=== PATIENT | female | born 1970 | race Caucasian/White ===

== ENCOUNTER 2019-08-13 09:02 | Outpatient (CLI) | payer OTHER, SELFPAY ==
--- NOTE | ~2019-08-13 | MM_ITS ---
EXAMINATION: MM screening [facility] BI w kristian HISTORY: Screening mammogram TECHNIQUE: Craniocaudal and mediolateral oblique 3-D tomosynthesis images were obtained and synthetic 2-D images were generated. CAD analysis was submitted and interpreted. COMPARISON: Comparison to multiple prior studies sequentially, with oldest reviewed study dated 09/2013. BREAST PARENCHYMAL COMPOSITION: There are scattered areas of fibroglandular density. FINDINGS: There is a developing asymmetry inferiorly in the right breast on MLO view with adjacent cl ustered calcifications. This is not well visualized on the cc view. No mammographic evidence for kayleigh gnancy in the left breast. IMPRESSION: 1. Developing right breast asymmetry. 2. Additional mammographic views and possible breast ultrasound are recommended. BI-RADS Category 0: Incomplete: Needs additional imaging evaluation. Reviewed, dictated and finalized at location A. IMPRESSION: 1. Developing right breast asymmetry. 2. Additional mammographic views and possible breast ultrasound are recommended . BI-RADS Category 0: Incomplete: Needs additional imaging evaluation.
== END 2019-08-13 09:03 | disposition home or self-care (01) ==
PROVIDERS: Visit Provider Obstetrics & Gynecology
DX: Z12.31 Encounter for screening mammogram for malignant neoplasm of breast (principal); R92.8 Other abnormal and inconclusive findings on diagnostic imaging of breast
CPT/HCPCS: 77063; 77067

== ENCOUNTER 2019-08-30 11:28 | Outpatient (CLI) | payer OTHER, SELFPAY ==
--- NOTE | ~2019-08-30 | MMUS_ITS ---
EXAMINATION: MM diagnostic mammo unilat RT, US breast RT limited HISTORY: Follow-up right breast asymmetry TECHNIQUE: Additional 3-D tomosynthesis images of right were performed and synthetic 2-D images were generated. CAD analysis was submitted and interpreted. High resolution right breast ultrasound was pe rformed. COMPARISON: 08/13/2019 FINDINGS: MAMMOGRAPHIC FINDINGS: Breast composed of scattered areas of fibroglandular density. There are no discrete masses or abnorma l calcifications. There is focal asymmetry central medial aspect of the right breast, middle third. ULTRASOUND: Limited right breast ultrasound: In the subareolar location of the right breast there is a 3 mm cyst. At 9:00, 4 cm from the nipple, t here is an irregular shaped hypoechoic mass measuring 3 x 2 x 2 mm with antiparallel configuration. N o internal vascularity. There is posterior shadowing. IMPRESSION: 1. Irregular shaped hypoechoic mass of the right breast at 9:00, 4 cm from the nipple. 2. Ultrasound-guided right breast biopsy recommended. BI-RADS category 4, suspicious findings. Reviewed, dictated and finalized at location A. IMPRESSION: 1. Irregular shaped hypoechoic mass of the right breast at 9:00, 4 cm from the nipple. 2. Ultrasound-guided right breast biopsy recommended. BI-RADS category 4, suspicious findings.
== END 2019-08-30 11:29 | disposition home or self-care (01) ==
PROVIDERS: Visit Provider Obstetrics & Gynecology
DX: R92.8 Other abnormal and inconclusive findings on diagnostic imaging of breast (principal)
CPT/HCPCS: 76642; 77065

== ENCOUNTER 2019-09-06 10:04 | Outpatient (CLI) | payer OTHER, SELFPAY ==
--- NOTE | ~2019-09-06 | MMUS_ITS ---
EXAMINATION: US breast biopsy RT w image, MM post biopsy invasive RT DATE: 09/06/2019 11:49 (accession [id number]), 09/06/2019 12:20 (accession [id number]) INDICATION: Indeterminate right breast mass. Ultrasound-guided core biopsy is requested to evaluate for malignancy. TECHNIQUE AND FINDINGS: The risks and potential benefits of the procedure were discussed with the patient including bleeding and infection. A time out was performed. The skin of the right breast was prepared and draped in usua l sterile fashion. 1% lidocaine was used for superficial anesthesia. 1% lidocaine with epinephrine wa s used for deep anesthesia. An initial attempt at aspiration using an 18-gauge needle was unsuccessfu l. A vacuum-assisted biopsy gun needle was then advanced to the outer edge of the region of interest fro m a lateral approach utilizing sonographic guidance. A total of one tissue core sample was obtained t hrough the lesion. The lesion was no longer visible after for sampling. A tissue marker clip was then placed at the biopsy site. Hemostasis was achieved. A sterile bandage was applied. The patient tolerated procedure well and there was no evidence of immediate complication. The patient was given verbal instructions to return to the Emergency Department in the event of severe breast pa in or rapid breast enlargement. A two view right breast mammogram was obtained to document tissue mar ker clip placement. IMPRESSION: 1. Successful ultrasound-guided vacuum-assisted biopsy of right breast mass with tissue marker placem ent. Reviewed, dictated and finalized at location A. IMPRESSION: 1. Successful ultrasound-guided vacuum-assisted biopsy of right breast mass wit h tissue marker placement.
== END 2019-09-06 10:05 | disposition home or self-care (01) ==
PROVIDERS: PCP Physician Assistant; Visit Provider Obstetrics & Gynecology
DX: N63.10 Unspecified lump in the right breast, unspecified quadrant (principal)
CPT/HCPCS: 19083; 88305

== ENCOUNTER → 2020-05-04 16:04 | Outpatient (REF) | payer OTHER, SELFPAY | LOC: ANHLAB 16:04 | PROVIDERS: PCP Physician Assistant; Visit Provider Nurse Practitioner | DX: C44.311 Basal cell carcinoma of skin of nose (principal) | CPT/HCPCS: 88305 ==

== ENCOUNTER → 2020-06-26 10:13 | Outpatient (REF) | payer OTHER, SELFPAY | LOC: ANHLAB 10:13 | PROVIDERS: PCP Physician Assistant; Visit Provider Nurse Practitioner | DX: C44.311 Basal cell carcinoma of skin of nose (principal) | CPT/HCPCS: 88305; 88331 ==

== ENCOUNTER 2020-08-18 08:48 | Outpatient (CLI) | payer OTHER, SELFPAY ==
--- NOTE | ~2020-08-18 | MM_ITS ---
EXAMINATION: MM screening [facility] BI w kristian HISTORY: Screening mammogram TECHNIQUE: Craniocaudal and mediolateral oblique 3-D tomosynthesis images were obtained and synthetic 2-D images were generated. CAD analysis was submitted and interpreted. COMPARISON: 08/30/2019, 08/13/2019, 08/03/2018, 08/06/2017 BREAST PARENCHYMAL COMPOSITION: There are scattered areas of fibroglandular density. FINDINGS: There is no evidence of suspicious mass, calcification, or architectural distortion to sugg est malignancy in either breast. There has been no suspicious interval change. IMPRESSION: 1. No mammographic evidence of malignancy. 2. Recommend routine screening mammography in one year. BI-RADS Category 1: Negative Reviewed, dictated and finalized at location A.
== END 2020-08-18 08:49 | disposition home or self-care (01) ==
LOC: ANHIMG 08:51
PROVIDERS: PCP Physician Assistant; Visit Provider Obstetrics & Gynecology
DX: Z12.31 Encounter for screening mammogram for malignant neoplasm of breast (principal)
CPT/HCPCS: 77063; 77067

== ENCOUNTER 2021-03-10 10:11 | Emergency (ER) | payer OTHER, SELFPAY ==
[2021-03-10 10:20] VITALS: BP 123/83; PULSE 101; RESP 16; TEMP 36.9; O2SAT 100
[2021-03-10 10:21] VITALS: BP 123/83; PULSE 101; RESP 16; TEMP 36.9; O2SAT 100
--- NOTE | 2021-03-10 10:32 | ED.SKABFB ---
HPI - Skin/Abscess/Foreign Bdy General Chief complaint: Skin/Abscess/Foreign Body Stated complaint: Insect Bite Time Seen by Provider: 03/10/21 10:33 Source: patient and RN notes reviewed Mode of arrival: ambulatory Limitations: no limitations History of Present Illness HPI narrative: Brenda 1-year-old female patient who ambulated into the [facility]. Patient states she has a bite on the left upper leg posterior side. Patient states she has been taking ibuprofen at home. Patient states she noticed the bite on 03/08/2021. Patient states has been increasing in size. Patient is unsure what bit her. Patient states pain is a 7 out of 10 with movement. MD complaint: insect bite/sting Related Data Home Medications Medication Instructions Recorded Confirmed escitalopram oxalate [Lexapro] 10 mg PO DAILY 03/10/21 03/10/21 Allergies Allergy/AdvReac Type Severity Reaction Status Date / Time peanut Allergy Unknown TONGUE Verified 03/10/21 10:17 ITCHING Sulfa (Sulfonamide Allergy Unknown Unknown Verified 03/10/21 10:17 Antibiotics) Review of Systems Review of Systems: CONSTITUTIONAL: Denies body aches, fever, chills, or sweats. EYES: Denies visual changes, redness, or discharge. ENT: Denies rhinorrhea, congestion, sore throat, or otalgia. CARDIOVASCULAR: Denies chest pain, palpitations, or edema. RESPIRATORY: Denies cough or dyspnea. GASTROINTESTINAL: Denies abdominal pain, nausea, vomiting, or diarrhea. GENITOURINARY: Denies dysuria or hematuria. SKIN: Denies rash, itching, or + left buttock bite . MUSCULOSKELETAL: Denies back pain, joint pain, or myalgia. NEUROLOGIC: Denies headache, numbness, tingling, or weakness. PSYCH: Denies depression or anxiety. [facility] Family History Family History Mother Family history of malignant neoplasm Social History Social History Smoking status: Never smoker Alcohol intake: never Comments At time of signature, I have reviewed and agree with nursing past medical, surgical, social and family history unless otherwise noted. Please see nursing chart for further information. There is no relevant family history pertinent to the presenting complaint Exam Narrative: GENERAL: Well-appearing, well-nourished, and in no acute distress. HEAD: Normocephalic, atraumatic. EYES: EOMI. No redness or drainage. Conjunctivae normal. ENT: Mucous membranes pink and moist. Nares clear. No rhinorrhea. NECK: Normal AROM. Supple. CHEST: No respiratory distress. MUSCULOSKELETAL: No bony tenderness. EXTREMITIES: Normal range of motion. No edema. SKIN: Warm, dry, no rash. Capillary refill normal. Normal skin turgor; 12cm erythematous area with .5cm blackened middle, area is warm to touch, non fluctuant, NEURO: No focal deficits. Alert and oriented x3. Gait steady. PSYCH: Normal affect. No signs of depression or anxiety. Course Vital Signs Vital signs: Vital Signs Temperature 36.9 C 03/10/21 10:20 Pulse Rate 101 H 03/10/21 10:20 Respiratory Rate 16 03/10/21 10:20 Blood Pressure 123/83 03/10/21 10:20 Pulse Oximetry 100 03/10/21 10:20 Temperature 36.9 C 03/10/21 10:21 Pulse Rate 101 H 03/10/21 10:21 Respiratory Rate 16 03/10/21 10:21 Blood Pressure 123/83 03/10/21 10:21 Pulse Oximetry 100 03/10/21 10:21 Reviewed MDM - Skin/Abscess/Foreign Bdy MDM Narrative Medical decision making narrative: Patient states she was bit by an insect unsure of what kind. There is a 0.5 cm blackened area surrounded by 12 cm centimeter area of erythema. Area is warm to touch. Nonfluctuant. Differential Diagnosis Differential diagnosis: Likely abscess of skin or subcutaneous tissue, cellulitis and insect bites Medical Records Attestation: I reviewed the patient's medical records. Critical Care Time Critical Care Time Critical Care Time: No Di
== END 2021-03-10 10:46 | disposition home or self-care (01) ==
PROVIDERS: Emergency Provider Nurse Practitioner Family
DX: L03.115 Cellulitis of right lower limb (principal); S70.361A Insect bite (nonvenomous), right thigh, initial encounter; W57.XXXA Bitten or stung by nonvenomous insect and other nonvenomous arthropods, initial encounter; D64.9 Anemia, unspecified
CPT/HCPCS: 99213; G0463

== ENCOUNTER 2021-03-30 12:21 | Outpatient (CLI) | payer OTHER, SELFPAY ==
--- NOTE | ~2021-03-30 | US_ITS ---
EXAMINATION: US soft tissue UE RT DATE: 03/30/2021 12:58 INDICATION: Right upper limb lump. TECHNIQUE: Multiple grayscale and Doppler ultrasound images of the right upper limb were obtained. COMPARISON: None FINDINGS: There is no abnormal mass in the patient's area of concern in the right shoulder region. IMPRESSION: 1. No abnormal mass in the patient's area of concern in the right shoulder region. Reviewed, dictated and finalized at location A. & PRESIDENT IMPRESSION: 1. No abnormal mass in the patient's area of concern in the right shoulder carlos on.
== END 2021-03-30 12:22 | disposition home or self-care (01) ==
PROVIDERS: Visit Provider Nurse Practitioner
DX: R22.31 Localized swelling, mass and lump, right upper limb (principal)
CPT/HCPCS: 76882

== ENCOUNTER 2021-09-17 10:12 | Outpatient (CLI) | payer OTHER, SELFPAY ==
--- NOTE | ~2021-09-17 | MM_ITS ---
EXAMINATION: MM screening [facility] BI w kristian HISTORY: Screening mammogram TECHNIQUE: Craniocaudal and mediolateral oblique 3-D tomosynthesis images were obtained and synthetic 2-D images were generated. CAD analysis was submitted and interpreted. COMPARISON: 08/18/2020 bilateral screening mammogram 09/06/2019 right ultrasound-guided breast biopsy 08/2019 diagnostic right mammogram and limited right breast ultrasound , 08/03/2018 bilateral screening mammogram examinations BREAST PARENCHYMAL COMPOSITION: There are scattered areas of fibroglandular density. FINDINGS: There is a biopsy marker in the outer mid to upper right breast similar history of prior be nign right breast biopsy. Occasional benign calcifications. There is no evidence of suspicious mass, calcification, or architec tural distortion to suggest malignancy in either breast. There has been no suspicious interval change . IMPRESSION: 1. No mammographic evidence of malignancy. 2. Recommend routine screening mammography in one year. BI-RADS Category 2: Benign finding(s). Reviewed, dictated and finalized at location A.
== END 2021-09-17 10:13 | disposition home or self-care (01) ==
LOC: ANHIMG 10:14
PROVIDERS: PCP Nurse Practitioner; Visit Provider Obstetrics & Gynecology
DX: Z12.31 Encounter for screening mammogram for malignant neoplasm of breast (principal)
CPT/HCPCS: 77063; 77067

== ENCOUNTER 2022-11-19 16:03 | Outpatient (CLI) | payer OTHER, SELFPAY ==
--- NOTE | ~2022-11-19 | MM_ITS ---
EXAMINATION: MM screening [facility] BI w kristian HISTORY: Screening mammogram TECHNIQUE: Craniocaudal and mediolateral oblique 3-D tomosynthesis images were obtained and synthetic 2-D images were generated. CAD analysis was submitted and interpreted. COMPARISON: 09/17/2021, 08/18/2020, 08/30/2019, 08/13/2019 BREAST PARENCHYMAL COMPOSITION: There are scattered areas of fibroglandular density. FINDINGS: No suspicious mass, calcification, or architectural distortion are identified in either river ast to suggest malignancy. There has been no suspicious interval change. IMPRESSION: 1. No mammographic evidence of malignancy. 2. Recommend routine screening mammography in one year. BI-RADS Category 1: Negative Reviewed, dictated and finalized at location A.
== END 2022-11-19 16:04 | disposition home or self-care (01) ==
PROVIDERS: PCP Nurse Practitioner; Visit Provider Obstetrics & Gynecology
DX: Z12.31 Encounter for screening mammogram for malignant neoplasm of breast (principal)
CPT/HCPCS: 77063; 77067

== ENCOUNTER 2023-04-10 06:46 | Outpatient (CLI) | payer OTHER, SELFPAY ==
[2023-04-10 08:15] LABS: Basophils Percent Auto 0.5 % (0.2-1.2); Eosinophils Absolute Auto 0.2 K/mm3 (0-0.3); Eosinophils Percent Auto 3.8 % (0-4.4); Hemoglobin 13.3 g/dL (12.0-15.0); Immature Granulocyte Absolute 0.01 K/mm3 (0.00-0.031); Immature Granulocyte Percent A 0.2 % (0-0.5); Lymphocytes Percent Auto 48.5 % (18.3-44.2); Mean Corpuscular HGB Conc 32.4 g/dl (32-36); Mean Corpuscular Hemoglobin 28.8 pg (26-34); Mean Corpuscular Volume 88.7 fl (80-100); Mean Platelet Volume 9.7 fl (7.4-10.4); Monocytes Absolute Auto 0.3 K/mm3 (0.1-0.6); Monocytes Percent Auto 6.1 % (2.6-8.5); Neutrophils Absolute Auto 2.3 K/mm3 (1.3-6.7); Neutrophils Percent Auto 40.9 % (45.5-73.1); Platelet Count Result 425 k/mm3 (150-375); Red Blood Count 4.62 M/mm3 (4.2-5.4); Red Cell Distribution Width 12.2 % (11.5-14.5); White Blood Count 5.6 K/mm3 (4.5-10.0)
== END 2023-04-10 06:47 | disposition home or self-care (01) ==
LOC: ANHLAB 06:49
PROVIDERS: PCP Nurse Practitioner; Visit Provider Nurse Practitioner
DX: D75.839 Thrombocytosis, unspecified (principal)
CPT/HCPCS: 36415; 85025

== ENCOUNTER 2023-05-07 15:18 | Outpatient (CLI) | payer OTHER, SELFPAY ==
[2023-05-07 15:34] LABS: Basophils Percent Auto 0.6 % (0.2-1.2); Eosinophils Absolute Auto 0.2 K/mm3 (0-0.3); Eosinophils Percent Auto 2.6 % (0-4.4); Hematocrit 40.3 % (37.0-47.0); Hemoglobin 13.7 g/dL (12.0-15.0); Immature Granulocyte Absolute 0.01 K/mm3 (0.00-0.031); Immature Granulocyte Percent A 0.1 % (0-0.5); Lymphocytes Absolute Auto 3.41 K/mm3 (0.9-3.2); Lymphocytes Percent Auto 49.2 % (18.3-44.2); Mean Corpuscular Hemoglobin 28.9 pg (26-34); Mean Platelet Volume 8.9 fl (7.4-10.4); Monocytes Absolute Auto 0.5 K/mm3 (0.1-0.6); Monocytes Percent Auto 6.9 % (2.6-8.5); Neutrophils Absolute Auto 2.8 K/mm3 (1.3-6.7); Neutrophils Percent Auto 40.6 % (45.5-73.1); Platelet Count Result 400 k/mm3 (150-375); Red Blood Count 4.74 M/mm3 (4.2-5.4); Red Cell Distribution Width 11.9 % (11.5-14.5); White Blood Count 6.9 K/mm3 (4.5-10.0)
[2023-05-07 16:34] LABS: Iron 64 ug/dL (37-170)
[2023-05-07 16:41] LABS: Alanine Aminotransferase 79 U/L (6-35); Albumin Level 4.4 g/dL (3.5-5.1); Alkaline Phosphatase 103 U/L (38-126); Anion Gap 8 mmol/L (8-16); Aspartate Amino Transferase 60 U/L (14-36); Bilirubin,Total 0.4 mg/dL (0.2-1.3); Blood Urea Nitrogen 13 mg/dL (7-17); CRP < 0.5 mg/dL (<1.0); Calcium 9.5 mg/dL (8.4-10.2); Carbon Dioxide 30 mmol/L (22-30); Chloride 101 mmol/L (98-107); Estimated Glomerular Filt Rate > 60; Glucose 96 mg/dL (65-110); Potassium 3.8 mmol/L (3.4-5.0); Sodium 139 mmol/L (137-145)
[2023-05-07 16:44] LABS: Percent Iron Saturation 19 % (20-50)
[2023-05-07 16:47] LABS: Erythrocyte Sedimentation Rate 12 mm/hr (0-20)
[2023-05-13 12:50] LABS: CALR Exon 9 Mutation Not Detected (Not Detected); CSF3R Exon 14/17 Mutation Not Detected (Not Detected); JAK2 Exon 12 Mutation Not Detected (Not Detected); JAK2 V617F Mutation Not Detected (Not Detected); MPL Exon 10 Mutation Not Detected (Not Detected); Specimen Source Blood
== END 2023-05-07 15:19 | disposition home or self-care (01) ==
LOC: ANHLAB 15:20
PROVIDERS: Nurse Practitioner Family; PCP Nurse Practitioner; Visit Provider Internal Medicine Hematology & Oncology
DX: D75.838 Other thrombocytosis (principal); D50.9 Iron deficiency anemia, unspecified; D75.1 Secondary polycythemia
CPT/HCPCS: 36415; 80053; 81219; 81270; 81279; 81339; 81479; 82728; 83540; 83550; 85025; 85652; 86140

== ENCOUNTER 2023-06-06 08:47 | Emergency (ER) | payer OTHER, SELFPAY ==
--- NOTE | ~2023-06-06 | CT_ITS ---
EXAMINATION: CTA BRAIN/CAROTID DATE: 06/06/2023 09:19 INDICATION: Stroke with left-sided numbness and tingling of the face, neck and arm TECHNIQUE: Computed tomographic angiography (CTA) of the head and neck was performed with 100 mL Omni paque-350 intravenous contrast. Multiplanar reconstructions and maximum intensity projection 3D-recon structions of the carotid arteries and of the intracranial arteries were created by the technologist on a separate workstation. Precontrast CT of the head was also obtained. Automated exposure control and iterative reconstruction technique were employed.The dose-length product was 1614.84 mGy-cm. COMPARISON: None. FINDINGS: Carotid arteries: There is no evident or sclerotic plaque with 0% stenosis of the right and left carotid bulbs relative to normal distal artery lumen diameter (NASCET criteria). Bilateral vertebral arteries are codominan t with no evident stenosis. The visualized upper lungs are clear. 1 cm peripherally enhancing right t hyroid nodule. Cervical soft tissues are otherwise unremarkable. Mild cervical spondylosis. Head: No acute intracranial hemorrhage, acute infarction or abnormal extra axial fluid collection. Ventricl es are normal and symmetric. No mass/mass effect. The orbits, paranasal sinuses and mastoid air cells are normal. Intracranial arteries There is no hemodynamically significant stenosis in the vertebral, basilar and internal carotid arter ies. Vertebral arteries are codominant. There are no aneurysms identified. Both A1 and P1 segments a re patent. There is also a patent anterior communicating artery. Cerebral arterial arborization appea rs symmetric. IMPRESSION: 1. No evident atherosclerotic plaque with 0% stenosis of the right and left carotid bulbs relative to normal distal artery lumen diameter (NASCET criteria). 2. Normal head CT and brain CT angiogram. Reviewed, dictated and finalized at location A. LE MAKER IMPRESSION: 1. No evident atherosclerotic plaque with 0% stenosis of the right and left car otid bulbs relative to normal distal artery lumen diameter (NASCET criteria). 2. Normal head CT and brain CT angiogram.
--- NOTE | ~2023-06-06 | CT_ITS ---
CT scan of the cervical spine Technique: Following intravenous administration of 100 cc of Omnipaque 350 contrast material, multipl e contiguous axial [address] images of the cervical spine were obtained and reconstructed in 2D s agittal and coronal planes on the acquisition scanner. Dose reduction technique was used on this scan by utilizing automated exposure control, adjustment of the mA and/or kV according to patient size. T he dose-length product (DLP) was 1614.84 mGy-cm. Clinical History: Pain Findings: No fractures or dislocations. Unremarkable visualized bony structures. The intervertebral disc spaces are preserved. No prevertebral soft tissue swelling. Impression: No fracture or subluxation of the cervical spine. Reviewed, dictated and finalized at location . H SHRINKER Impression: No fracture or subluxation of the cervical spine.
--- NOTE | ~2023-06-06 | XR_ITS ---
EXAMINATION: XR chest 1V portable INDICATION: Left arm numbness TECHNIQUE: Portable AP chest at 0950 hours COMPARISON: 03/26/2023 FINDINGS: The lungs are free of acute opacities. No pleural effusion or pneumothorax. The cardiomedia stinal silhouette is normal. IMPRESSION: 1. No acute cardiopulmonary abnormality. Reviewed, dictated and finalized at location B. SETTER
[2023-06-06 08:58] VITALS: BP 126/77; PULSE 88; RESP 18; TEMP 36.4; O2SAT 100
--- NOTE | 2023-06-06 08:58 | ECG_ITS ---
Measurements Intervals [place] Rate: 84 P: 58 ME: 158 QRS: 50 QRSD: 88 T: 46 QT: 376 QTc: 445 Interpretive Statements SINUS RHYTHM LOW QRS VOLTAGE IN PRECORDIAL LEADS [QRS DEFLECTION < 1.0 mV IN CHEST LEADS] OTHERWISE NORMAL ECG NO PREVIOUS ECG AVAILABLE FOR COMPARISON Electronically Signed On 06-06-2023 15:34:18 [employer] CHIEF CLERK by Bishnu Coronado M.D.
[2023-06-06 09:02] LABS: Glucose Point of Care 98 mg/dl (65-105)
--- NOTE | 2023-06-06 09:10 | ED.GENADULT ---
HPI - General Adult General Chief complaint: Neuro Symptoms/Deficit Stated complaint: N/T arm and face left side Time Seen by Provider: 06/06/23 09:09 History of Present Illness HPI narrative: Patient is a 53-year-old female who presents to the emergency department this morning due to concern for stroke. Patient states that she has been having some neck and left shoulder pain for a while but shortly prior to arrival she noticed that she was having some numbness and tingling to her left upper extremity which was extending up to her left shoulder and left neck. Patient admits that she feels mild to her left face as well. She denies any weakness, any difficulties with her speech expression and denies any additional symptoms. Patient is able to ambulate without any difficulty. She denies any history of strokes or TIAs and denies any current blood thinner use. Patient only takes a baby aspirin due to history of thrombocytosis. Patient denies any additional symptoms include chest pain, shortness of breath, nausea, vomiting, abdominal pain, dysuria, hematuria, constipation, diarrhea, melena, hematochezia, fevers or chills. Patient also denies any headaches, dizziness, lightheadedness, blurry visions or focal weakness. There are no other modifying, alleviating, or precipitating factors at this time. Related Data Home Medications Medication Instructions Recorded Confirmed escitalopram oxalate 10 mg tablet 10 mg PO DAILY 03/10/21 03/10/21 (Lexapro) Allergies Allergy/AdvReac Type Severity Reaction Status Date / Time peanut Allergy Unknown TONGUE Verified 09/17/21 13:43 ITCHING Sulfa (Sulfonamide Allergy Unknown Unknown Verified 09/17/21 13:43 Antibiotics) Review of Systems Review of Systems: All systems are reviewed and are negative unless stated otherwise in the HPI. [facility] Family History Family History Mother Family history of malignant neoplasm Social History Social History Smoking status: Never smoker Alcohol intake: never Comments No significant past medical history, surgical history or family history. Patient denies any history of strokes or TIAs, is currently on a baby aspirin due to thrombocytosis. Exam Narrative: General: Alert, awake, afebrile, in no acute distress. HEENT: PERRL, no rhinorrhea, no post nasal drip, oropharynx clear. Neck: Trachea midline, no JVD, no lymphadenopathy, no midline tenderness to palpation over the cervical spine. Cardiovascular: Regular rate and rhythm, no murmurs, rubs or gallops, no peripheral edema. Respiratory: Clear to auscultation bilaterally, no tachypnea, no wheezing, no rhonchi, no rubs, no respiratory distress. Abdomen: Soft, nontender, nondistended, no rebound, no guarding, no peritoneal signs. Musculoskeletal: No joint swelling or deformity, normal muscle tone. Skin: No rashes or petechia, no signs of infection. Psychiatric: Alert and oriented, normal behavior and judgment for situation. Neurological: Alert and oriented to person, place, and time. Follows all commands. 5/5 motor strength in the bilateral upper and lower extremity, sensation intact in the bilateral upper and lower extremity, patient reports paresthesias to the left upper extremity extending to her left neck, no facial asymmetry, gait is normal, speech is clear and fluent. GCS 15, NIH 1. Course Vital Signs Vital signs: Vital Signs Temperature 97.5 F L 06/06/23 08:58 Pulse Rate 88 06/06/23 08:58 Respiratory Rate 18 06/06/23 08:58 Blood Pressure 126/77 06/06/23 08:58 Pulse Oximetry 100 06/06/23 08:58 Oxygen Delivery Room Air 06/06/23 08:58 Temperature 98.3 F 06/06/23 09:17 Pulse Rate 93 06/06/23 09:17 Respiratory Rate 16 06/06/23 09:17 Blood Pressure 137/82 06/06/23 09:17 Pulse Oximetry 100 06/06/23 09:17 Oxygen Delivery Room Air
[2023-06-06 09:17] VITALS: BP 137/82; PULSE 93; RESP 16; TEMP 36.8; O2SAT 100
[2023-06-06 09:33] LABS: Basophils Percent Auto 0.6 % (0.2-1.2); Eosinophils Absolute Auto 0.2 K/mm3 (0-0.3); Eosinophils Percent Auto 2.4 % (0-4.4); Hematocrit 42.8 % (37.0-47.0); Immature Granulocyte Absolute 0.01 K/mm3 (0.00-0.031); Immature Granulocyte Percent A 0.2 % (0-0.5); Lymphocytes Absolute Auto 2.73 K/mm3 (0.9-3.2); Lymphocytes Percent Auto 43.6 % (18.3-44.2); Mean Corpuscular HGB Conc 32.7 g/dl (32-36); Mean Corpuscular Hemoglobin 27.9 pg (26-34); Mean Corpuscular Volume 85.4 fl (80-100); Mean Platelet Volume 9.5 fl (7.4-10.4); Monocytes Absolute Auto 0.4 K/mm3 (0.1-0.6); Monocytes Percent Auto 6.4 % (2.6-8.5); Neutrophils Absolute Auto 2.9 K/mm3 (1.3-6.7); Neutrophils Percent Auto 46.8 % (45.5-73.1); Platelet Count Result 438 k/mm3 (150-375); Red Blood Count 5.01 M/mm3 (4.2-5.4); Red Cell Distribution Width 12.4 % (11.5-14.5); White Blood Count 6.3 K/mm3 (4.5-10.0)
[2023-06-06 09:43] LABS: INR 0.9; Prothrombin Time 12.4 Seconds (11.1-14.7)
[2023-06-06 09:44] LABS: Partial Thromboplastin Time 28.4 SECONDS (22.3-36.8)
[2023-06-06 09:53] LABS: Alanine Aminotransferase 40 U/L (6-35); Albumin Level 4.3 g/dL (3.5-5.1); Alkaline Phosphatase 98 U/L (38-126); Anion Gap 7 mmol/L (8-16); Aspartate Amino Transferase 37 U/L (14-36); Bilirubin,Total 0.8 mg/dL (0.2-1.3); Blood Urea Nitrogen 11 mg/dL (7-17); Calcium 9.5 mg/dL (8.4-10.2); Carbon Dioxide 28 mmol/L (22-30); Chloride 105 mmol/L (98-107); Estimated CRCL calculation 73 ml/min; Estimated Glomerular Filt Rate > 60; Glucose 99 mg/dL (65-110); Potassium 3.9 mmol/L (3.4-5.0); Sodium 140 mmol/L (137-145)
[2023-06-06 09:56] LABS: Troponin I < 0.012 ng/mL (0.000-0.034)
[2023-06-06 12:55] VITALS: BP 137/98; PULSE 88; RESP 16; O2SAT 100
== END 2023-06-06 12:56 | disposition home or self-care (01) ==
LOC: ANHED 09:43
PROVIDERS: Emergency Provider Emergency Medicine; PCP Nurse Practitioner
DX: M54.12 Radiculopathy, cervical region (principal); Z79.82 Long term (current) use of aspirin; D75.839 Thrombocytosis, unspecified
CPT/HCPCS: 36415; 70496; 70498; 71045; 72125; 80053; 82948; 84484; 85025; 85610; 85730; 93005; 99284; Q9967

== ENCOUNTER 2023-08-19 09:35 | Outpatient (CLI) | payer OTHER, SELFPAY ==
--- NOTE | ~2023-08-19 | US_ITS ---
EXAMINATION: US thyroid DATE: 08/19/2023 10:50 INDICATION: Right thyroid nodule TECHNIQUE: Multiple ultrasound images of the thyroid were obtained. COMPARISON: None. FINDINGS: The right thyroid lobe measures 4.6 x 1.7 x 1.4 cm. The left thyroid lobe measures 4.5 x 1.0 x 1.5 c m. There is a wider than tall 1.5 cm solid hypoechoic nodule with smooth margins and without echogen ic foci in the mid inferior right thyroid lobe. (TI-RADS 4, moderately suspicious , FNA if >=1.5 cm, annual followup is >=1 cm). There is normal echotexture, echogenicity and vascular flow throughout th e thyroid gland. Cephalad to the left thyroid lobe is thickening of the left ala of the thyroid carti jacque with a central fusiform 11 x 7 x 4 mm anechoic region within the cartilage which can be seen on the earlier carotid and cervical spine CT studies from 06/06/2023 is a fusiform region of central decre ased attenuation relative to the higher attenuation/enhancing inner and outer perichondrial. IMPRESSION: 1. 1.5 cm TI RADS 4 right thyroid nodule for which ultrasound-guided biopsy would be recommended. 2. 11 x 7 x 4 mm anechoic lesion within the left ala of the thyroid cartilage. Differential would inc lude purulent chondritis, hematoma related to trauma or potentially chondral neoplasm either benign o r malignant. Recommend ENT consultation. Reviewed, dictated and finalized at location A. IMPRESSION: 1. 1.5 cm TI RADS 4 right thyroid nodule for which ultrasound-guided biopsy wou ld be recommended. 2. 11 x 7 x 4 mm anechoic lesion within the left ala of the thyroid cartilage. Differential would include purulent chondritis, hematoma related to trauma or p otentially chondral neoplasm either benign or malignant. Recommend ENT consulta tion.
== END 2023-08-19 09:36 | disposition home or self-care (01) ==
LOC: ANHIMG 09:37
PROVIDERS: PCP Nurse Practitioner; Visit Provider Nurse Practitioner
DX: E04.1 Nontoxic single thyroid nodule (principal)
CPT/HCPCS: 76536

== ENCOUNTER 2023-12-12 08:05 | Outpatient (CLI) | payer OTHER, SELFPAY ==
--- NOTE | ~2023-12-12 | MM_ITS ---
EXAMINATION: MM screening [facility] BI w kristian HISTORY: Screening TECHNIQUE: Craniocaudal and mediolateral oblique 3-D tomosynthesis images were obtained and synthetic 2-D images were generated. CAD analysis was submitted and interpreted. COMPARISON: Comparison to multiple prior studies sequentially, with oldest reviewed study dated 08/12. BREAST PARENCHYMAL COMPOSITION: Not dense: There are scattered areas of fibroglandular density. FINDINGS: There is no evidence of suspicious mass, calcification, or architectural distortion to sugg est malignancy in either breast. There has been no suspicious interval change. IMPRESSION: 1. No mammographic evidence of malignancy. 2. Recommend routine screening mammography in one year. BI-RADS Category 1: Negative Reviewed, dictated and finalized at location B.
== END 2023-12-12 08:06 | disposition home or self-care (01) ==
PROVIDERS: PCP Nurse Practitioner; Visit Provider Obstetrics & Gynecology
DX: Z12.31 Encounter for screening mammogram for malignant neoplasm of breast (principal)
CPT/HCPCS: 77063; 77067

== ENCOUNTER 2024-09-15 09:56 | Outpatient (CLI) | payer OTHER, SELFPAY ==
--- NOTE | ~2024-09-15 | US_ITS ---
EXAMINATION: US thyroid DATE: 09/15/2024 10:11 INDICATION: Thyroid nodule TECHNIQUE: Multiple ultrasound images of the thyroid were obtained. COMPARISON: 08/19/2023 FINDINGS: The right thyroid lobe measures 4.5 x 1.6 x 1.8 cm. Within the upper pole of the right lobe of the thyroid gland is a 16 x 9.3 x 11.3mm nodule: Composition -mixed cystic and solid (1) Echogenicity -primarily isoechoic (1) Shape - wider than tall Margin - smooth Echogenic foci - none. = TR2 not suspicious. The left thyroid lobe measures 4.4 x 1.1 x 1.3 cm. The isthmus measures 0.3cm in anterior to posterior dimension. There is otherwise normal echotexture and echogenicity throughout the remainder of the thyroid gland. No additional discrete nodules identified. Borderline hypervascular flow is present. Superior to the thyroid gland, to the left of midline, within the thyroid cartilage is a 8 x 4 mm ane choic well-circumscribed focus, decreased in size from previous examination when it measured 10.2 x 7 .1 x 12.9 mm. IMPRESSION: TR2 nodule in the right lobe of the thyroid gland measuring 16 mm in greatest dimension. This nodule is not sonographically suspicious and no FNA is recommended While follow-up is not recommended, it may be performed, at the discretion of the referring clinician . Redemonstration of a well-circumscribed anechoic focus within the left thyroid cartilage, decreased i n size from prior, likely representing a benign process (secondary to the decrease in size). Reviewed, dictated and finalized at location A. IMPRESSION: TR2 nodule in the right lobe of the thyroid gland measuring 16 mm in greatest d imension. This nodule is not sonographically suspicious and no FNA is recommended While follow-up is not recommended, it may be performed, at the discretion of t he referring clinician. Redemonstration of a well-circumscribed anechoic focus within the left thyroid cartilage, decreased in size from prior, likely representing a benign process ( secondary to the decrease in size).
== END 2024-09-15 09:57 | disposition home or self-care (01) ==
PROVIDERS: PCP Nurse Practitioner
DX: E04.1 Nontoxic single thyroid nodule (principal)
CPT/HCPCS: 76536

== ENCOUNTER 2024-10-18 08:40 | Outpatient (CLI) | payer OTHER, SELFPAY ==
[2024-10-18 08:52] LABS: Hematocrit 39.3 % (37.0-47.0); Hemoglobin 13.4 g/dL (12.0-15.0); Mean Corpuscular HGB Conc 34.1 g/dl (32-36); Mean Corpuscular Hemoglobin 28.3 pg (26-34); Mean Corpuscular Volume 83.1 fl (80-100); Mean Platelet Volume 9.1 fl (7.4-10.4); Platelet Count Result 402 k/mm3 (150-375); Red Blood Count 4.73 M/mm3 (4.2-5.4); Red Cell Distribution Width 12.2 % (11.5-14.5); White Blood Count 7.3 K/mm3 (4.5-10.0)
== END 2024-10-18 08:41 | disposition home or self-care (01) ==
PROVIDERS: PCP Nurse Practitioner; Visit Provider Internal Medicine Hematology & Oncology
DX: D75.838 Other thrombocytosis (principal)
CPT/HCPCS: 36415; 85027

== ENCOUNTER 2024-12-30 08:04 | Outpatient (CLI) | payer OTHER, SELFPAY ==
--- OUTSIDE RECORDS SUMMARY | 2024-12-13 05:00 | XMS_ITS ---
Author Organization [facility] [employer] [facility] Address [facility] [address] [address] Care Team Providers Care Supervisor Force Adjustment Name Role Phone Mary Wang APN Primary Care Provider Lexis Christopher Unavailable [phone] Cynthia Mathew Unavailable [phone] REASON FOR VISIT 2 week follow up Social History Sex Assigned At : Social History Observation Description Sex Assigned At Female Encounters Encounter Location Date Provider Diagnosis [facility] [employer] [place] [address] [facility] [address] [address] 12/13/2024 Cynthia Mathew Plan Of Treatment Next Appt Details Provider Name:Cynthia Mathew , 01/10/2025 10:00:00 AM, [facility] [place] [address], [address], [address], Provider Name:Lexis erazo, 01/18/2025 04:30:00 PM, [facility] [address] [facility], [address], [address], Provider Name:Cynthia Mathew , 01/24/2025 10:00:00 AM, [address] [place] [address], [address], Progress Notes * ELVIN LOGANB: [birth year] (54 yo F)Acc No.[id number]:12/13/2024 Patient: Fanny ROMEO PORTILLO Provider: Antione MATHEW LCSW :1970 A ge:54 Y S ex:Female Date:12/13/2024 Address: [address] , [facility] Pcp:Mary Wang APN Data: * Chief Complaints: * 2 week follow up * Electronic signature of Vandana Mathew LCSW on 12/30/2024 at 08:09 AM CDT Sign off status: Pending Signatures: No Ad Hoc Signature Added * Provider: Antione MATHEW LCSW Date: 0 12/13/2024 Generated for Laz angel/Rosa Isela/eTransmnancy on: 0 12/30/2024 08:09 AM CDT
--- OUTSIDE RECORDS SUMMARY | 2024-12-28 05:00 | XMS_ITS ---
Author Organization [facility] e[employer]ital [facility] Address [facility] [address] [address] Care Team Providers Care Manager Presentation Name Role Phone Mary Wang APN Primary Care Provider Lexis Christopher Unavailable [phone] Cynthia Mathew Unavailable [phone] REASON FOR VISIT 2 week follow up Social History Sex Assigned At : Social History Observation Description Sex Assigned At Female Encounters Encounter Location Date Provider Diagnosis [facility] [place] [address] [facility] [address] [address] 12/28/2024 Cynthia Mahtew Plan Of Treatment Next Appt Details Provider Name:Cynthia Mathew , 01/10/2025 10:00:00 AM, [facility] [place] [address], [address], [address], Provider Name:Lexis erazo, 01/18/2025 04:30:00 PM, [facility] [place] [address], [address], [address], Provider Name:Cynthia Mathew , 01/24/2025 10:00:00 AM, [address] [place] [address], [address], Progress Notes * ELVIN LOGANB: [birth year] (54 yo F)Acc No.[id number]:12/28/2024 Patient: Fanny ROMEO PORTILLO Provider: Antione MATHEW LCSW :1970 A ge:54 Y S ex:Female Date:12/28/2024 Address: [address] , [id number] Pcp:Mary Wang APN Data: * Chief Complaints: * 2 week follow up * Electronic signature of Vandana Mathew LCSW on 12/30/2024 at 08:09 AM CDT Sign off status: Pending Signatures: No Ad Hoc Signature Added * Provider: Antione MATHEW LCSW Date: 12/28/2024 Generated for Laz angel/Rosa Isela/eTransmnancy on: 12/30/2024 08:09 AM CDT
--- NOTE | ~2024-12-30 | MM_ITS ---
EXAMINATION: MM screening [facility] BI w kristian HISTORY: Screening TECHNIQUE: Craniocaudal and mediolateral oblique 3-D tomosynthesis images were obtained and synthetic 2-D images were generated. CAD analysis was submitted and interpreted. COMPARISON: Mammograms from 12/12/2023 and 11/19/2022 BREAST PARENCHYMAL COMPOSITION: There are scattered areas of fibroglandular density. FINDINGS: There is no evidence of suspicious mass, calcification, or architectural distortion to suggest malignancy. There has been no suspicious interval change. IMPRESSION: 1. No mammographic evidence of malignancy. Recommend routine screening mammography in one year. BI-RADS Category 2: Benign finding(s) Reviewed, dictated and finalized at location Q. IMPRESSION: 1. No mammographic evidence of malignancy. Recommend routine screening mammogra phy in one year. BI-RADS Category 2: Benign finding(s)
--- OUTSIDE RECORDS SUMMARY | 2024-12-30 08:08 | XMS_ITS | Clinical Summary ---
Author Organization [facility] [employer] [facility] Address [address] [facility] [place] [address] Care Team Providers Care Rubber Tire Curer Name Role Phone Beth Cole PA-C Primary Care Provider Source Comments [facility],non-owned Affiliates and Associated Physician Practices is amultiple site organization consisting of ambulatory clinics and hospital sitesin [place], [place], [place] and [place]. This disclosure is being madepursuant to the Care Everywhere program and may not contain all information available regarding this patient. Last updated 18.[facility] Allergies Active Allergy Reactions Criticality Noted Date Comments Peanut-Derived 02/01/2013 Sulfa Drugs 11/28/2008 Medications * Be aware that medications may not be up to date on this document. Alwaysverify current medications with the patient. fluticasone-salme terol (ADVAIR DISKUS) 100-50 MCG/DOSE inhalerIndication s:Moderate persistent asthma without complication (HCC) Inhale 1 Puff by mouth 2 times daily 1 Inhaler 1 05/22/2015 Active VENTOLIN HFA 108 (90 BASE) MCG/ACT inhaler INHALE 2 PUFFS BY MOUTH EVERY 6 HOURS NEEDED 18 g 02/12/2016 Active Active Problems Problem Noted Date Diagnosed Date Melanoma in situ of shoulder 02/01/2013 Screening for condition 11/28/2008 Overview (01/26/2015): Adult Abstraction Problem List Screening Colonoscopy: Result: Not avail in chart Date: 2006 Immunizations Immunization Administration Dates Next Due INFLUENZA VACCINE 01/28/2013 Family History Medical History Relation Name Comments Diabetes Mother Hypertension Mother Relation Name Status Comments Mother Social History Tobacco Use Types Packs/Day Years Used Date Smoking Tobacco: Never Smokeless Tobacco: Never Alcohol Use Standard Drinks/Week Comments No 0 (1 standard drink = 0.6 oz pur e alcohol) Comments No Sex and Gender Information Value Date Recorded Sex Assigned at Not on file Legal Sex Female 7:38 AM ENGINEERING DRAFTER Gender Identity Not on file Sexual Orientation Not on file Last Filed Vital Signs Vital Sign Reading Time Taken Comments Blood Pressure 124/80 03/27/2015 4:43 PM ENGINEERING DRAFTER Pulse 79 03/27/2015 4:43 PM ENGINEERING DRAFTER Temperature - - Respiratory Rate - - Oxygen Saturation - - Inhaled Oxygen Concentration - - Weight 72.6 kg (160 lb) 03/27/2015 4:43 PM ENGINEERING DRAFTER Height 157.5 cm (5' 2) 03/27/2015 4:43 PM ENGINEERING DRAFTER Body Mass Index 29.26 03/27/2015 4:43 PM ENGINEERING DRAFTER Plan of Treatment Health Maintenance Due Date Last Done Comments COLOGUARD (AGES 45-75) - COL ON CA SCREENING 1970 COLON MONITORING 1970 COLONOSCOPY - COLON CA SCREENING 1970 CT COLONOGRAPHY - COLON CA SCREENING 1970 Colorectal Cancer Screening 1970 FIT - COLON CA SCREENING 1970 FLEX SIG - COLON CA SCREENING 1970 HIV SCREENING 1985 HEPATITIS C SCREENING 02/28/1988 DTAP/TDAP/TD VACCINES (1 - Tdap) 1989 HEPATITIS B VACCINE (1 of 3 - 19+ 3-dose series) 1989 MAMMOGRAM 04/30/2013 04/30/2012 (Previously completed) PAP SMEAR 09/28/2013 09/28/2012 (Previously completed) LIPID TESTING 03/29/2016 03/29/2015, 05/31/2013 PNEUMOCOCCAL VACCINE 50+ (1 of 1 - PCV) 2020 ZOSTER VACCINE (1 of 2) 2020 COVID-19 VACCINE ( - 2023-2 5 season) 2023 DEPRESSION SCREENING 04/28/2024 INFLUENZA VACCINE (#1) 2024 01/28/2013 HIB VACCINE Aged Out No longer eligi ble based on patient's age to complete this topic HPV VACCINE Aged Out No longer eligi ble based on patient's age to complete this topic MENINGOCOCCAL (Group B) VACCINE SHARED DECISION-MAKING Aged Out No longer eligible based on patient's age to complete this topic MENINGOCOCCAL GROUPS A/C/Y/W VACCINE Aged Out No longer eligible b ased on patient's age to complete this topic Procedures Procedure Name Priority Date/Time Associated Diagnosis Comments LIPID PROFILE Routine 03/29/2015 12:41 PM ENGINEERING DRAFTER Lipid screening from Last 3 Months or Most Recently Relevant to Health Maintenance Results * (ABNORMAL) LIPID PROFILE (03/29/2015 12:41 PM ENGINEERING DRAFTER) Cholesterol 232(H) <200 mg/dL [facility] ACCOUNT BILL Triglycerides 104 <150 mg/dL [facility] ACCOUNT BILL HDL Cholesterol 77 >40 mg/dL [facility] ACCOUNT BILL VLDL Calculated 21 <=30 mg/dL [facility] ACCOUNT BILL LDL Calculated 134(H) <130 mg/dL [facility] ACCOUNT BILL Blood specimen (specimen) BLOOD SPECIMEN / Unknown 03/29/2015 12:41 PM ENGINEERING DRAFTER 03/29/2015 6:11 PM ENGINEERING DRAFTER Narrative Resulting Agency Comment [facility] [address] [facility] [id number] Kaylen Clay APRN-EDITING COMPUTER PUBLISHER LAB - CHEMISTRY ORD ERABLES Final Result [facility] ACCOUNT BILL [address] [place] [address] from Last 3 Months or Most Recently Relevant to Health Maintenance Insurance [employer] * Guarantor: BRENDA BARNES Account Type Relation to Patient Date of Phone Billing Address Personal/Family [address] [place] [address] SELF PAY NO INSURANCE Member Subscriber Plan / Payer (Ef fective for All Dates) Name:Brenda Barnes Member ID:Not on file Relation to Subscriber:Not on file Name:BRENDA BARNES Subscriber ID:Not on file Address: [address] [place] [address] Payer ID:Not on file Group ID:Not on file Type:Self Pay Address: [place], [place] * Guarantor: BRENDA BARNES Account Type Relation to Patient Date of Phone Billing Address Personal/Family [address] [place] [address] [employer] SELF PAY NO INSURANCE Member Subscriber Plan / Payer (Ef fective for All Dates) Name:Brenda Barnes Member ID:Not on file Relation to Subscriber:Not on file Name:BRENDA BARNES Subscriber ID:Not on file Address: [address] [place] [address] Payer ID:Not on file Group ID:Not on file Type:Self Pay Address: [place], [place] * Guarantor: BRENDA BARNES Account Type Relation to Patient Date of Phone Billing Address Personal/Family [address] [place] [address] SELF PAY NO INSURANCE Member Subscriber Plan / Payer (Ef fective for All Dates) Name:Brenda Barnes Member ID:Not on file Relation to Subscriber:Not on file Name:BRENDA BARNES Subscriber ID:Not on file Address: [address] [place] [address] Payer ID:Not on file Group ID:Not on file Type:Self Pay Address: [place], [place] Care Teams Rubber Tire Curer Relationship Specialty Start Date End Date Beth Cole PA-C [address] [place] [address] PCP - General 07/04/20
--- OUTSIDE RECORDS SUMMARY | 2024-12-30 08:08 | XMS_ITS | Encounter Summary ---
Author Organization [facility] Address [address] [place] [address] Care Team Providers Care Trumpet Teacher Name Role Phone Mary Wang YEAST FERMENTATION ATTENDANT Primary Care Provider [phone] Encounter Details Date Type Department Care Team (Late st Contact Info) Description 06/11/2023 Radar da Produçãot Message Enc [facility] Family Medicine - [place] [address] [facility] [address] [place] [id number] Mary Wang, YEAST FERMENTATION ATTENDANT [address] [place] [address] Nodule found on test results Social History Tobacco Use Types Packs/Day Years Used Date Smoking Tobacco: Never Passive Smoke Exposure: Past Smokeless Tobacco: Never Alcohol Use Standard Drinks/Week Comments Never 0 (1 standard drink = 0.6 oz pur e alcohol) AUDIT-C Answer Date Recorded Frequency of Alcohol Consumption Never 11/11/2018 Average Number of Drinks Not on file 019 Frequency of Binge Drinking Not on file 10/26 PHQ-2 Answer Date Recorded Patient Health Questionnaire-2 Score 0 09/02/2022 Comments No Sex and Gender Information Value Date Recorded Sex Assigned at Female 09/02/2024 8:23 AM CDT Legal Sex Female 10:27 AM CDT Gender Identity Female 09/02/2024 8:23 AM CDT Sexual Orientation Not on file documented as of this encounter Plan of Treatment Not on file documented as of this encounter Visit Diagnoses Not on filedocumented in this encounter Additional Health Concerns Assessment Noted Time PHQ-9 Depression Total Score: 0 01/16/20 21 9:56 AM CDT documented as of this encounter Care Teams Trumpet Teacher Relationship Specialty Start Date End Date Mary Wang NP [address] [place] [address] [place] [address] PCP - General NURSE PRACTITIONER 01/08/21 documented as of this encounter
--- OUTSIDE RECORDS SUMMARY | 2024-12-30 08:08 | XMS_ITS | Clinical Summary ---
Author Organization [facility] Address [address] [address] Care Team Providers Care Shovel Handle Assembler Name Role Phone Unavailable Primary Care Provider Unavailabl e Allergies Active Allergy Reactions Criticality Noted Date Comments Sulfa (Sulfonamide Antibiotics) Hives High 04/28 Medications escitalopram oxalate (LEXAPRO) 10 mg tablet Take 1 Tablet by mouth daily. 05/05/2020 Active lisdexamfetamine (VYVANSE) 30 mg capsule Take 30 mg by mouth daily. 02/02/2023 Active risedronate (ACTONEL) 30 mg tablet Take 30 mg by mouth every 7 days. Active aspirin (ECOTRIN EC) 81 mg Tablet, Delayed Release (E.C.) Take 81 mg by mouth daily. Active multivitamins with minerals (Multiple Vitamin-Minerals ) Tablet Take 1 Tablet by mouth daily. Active omeprazole (PriLOSEC) 20 mg Capsule, Delayed Release(E.C.) Take 20 mg by mouth daily. Active Active Problems No known active problems Encounters Date Type Department Care Team Description 11/30/2024 External Device Data [facility] ABSTRACTION Provider, Abstract 11/10/2024 External Device Data [facility]STRACTION Provider, Abstract 11/09/2024 External Device Data [facility]STRACTION Provider, Abstract 10/19/2024 10:15 AM CDT Office Visit [facility] Oncology and Hematology - [place] [address] [place] [address] Bharat Simms MD Reactive thrombocytosis (Primary Dx) 10/12/2024 External Device Data [facility] ABSTRACTION Provider, Abstract from Last 3 Months Family History Medical History Relation Name Comments No Known Problems Daughter 1 No Known Problems Daughter 2 Diabetes Mother Kidney Cancer Mother No Known Problems Sister No Known Problems Son 1 No Known Problems Son 2 Relation Name Status Comments Daughter 1 Alive Daughter 2 Alive Mother Alive Sister Alive Son 1 Alive Son 2 Alive Social History Tobacco Use Types Packs/Day Years Used Date Smoking Tobacco: Never Smokeless Tobacco: Never Tobacco Cessation:Counseling Given: Not Answered Alcohol Use Standard Drinks/Week Comments Never 0 (1 standard drink = 0.6 oz pur e alcohol) Comments Unknown Sex and Gender Information Value Date Recorded Sex Assigned at Not on file Legal Sex Female 10:26 PM CDT Gender Identity Not on file Sexual Orientation Not on file Last Filed Vital Signs Vital Sign Reading Time Taken Comments Blood Pressure 137/89 10/19/2024 10:00 AM CDT Pulse 110 10/19/2024 10:00 AM CDT Temperature 36.8 C (98.2 F) 10/19/2024 10:00 AM CDT Respiratory Rate 16 10/19/2024 10:00 AM CDT Oxygen Saturation 97% 10/19/2024 10:00 AM CDT Inhaled Oxygen Concentration - - Weight 75.9 kg (167 lb 6.4 oz) 10/19/2024 10:00 AM CDT Height 157.5 cm (5' 2) 05/07/2023 2:32 PM LAYER OUT PLATE GLASS Body Mass Index 30.62 05/07/2023 2:32 PM LAYER OUT PLATE GLASS Plan of Treatment Upcoming Encounters Date Type Department Care Team (Late st Contact Info) Description 05/04/2025 10:00 AM L[employer]ER [employer]ASS Office Visit [facility] Oncology and Hematology - [place] [address] [facility] [address] [place] [address] Bharat Simms MD [address] [facility] [address] [place] [address] Health Maintenance Due Date Last Done Comments Pre-Diabetes and Diabetes Screening 1970 HEPATITIS B VACCINES (1 of 3 - 19+ 3-dose series) 10/1988 BREAST CANCER SCREENING 2010 COLORECTAL SCREENING 2015 Colorectal Cancer Screening 2015 FIT-DNA Q 3 years 2015 FIT/FOBT Q 1 year 2015 Flex Sig/CT Colonography Q 5 years 2015 ZOSTER VACCINE (1 of 2) 2020 INFLUENZA VACCINE (#1) 2024 DTAP/TDAP/TD VACCINES (2 - Td or Tdap) 03/12/2031 Insurance [facility] OPEN ACCESS HMO
--- OUTSIDE RECORDS SUMMARY | 2024-12-30 08:09 | XMS_ITS | Encounter Summary ---
Author Organization [facility] Address [address] [place] [address] Care Team Providers Care Fountain Waitress/Waiter Name Role Phone Mary Wang ASSISTANT PROJECT ENGINEER Primary Care Provider [phone] Encounter Details Date Type Department Care Team (Late st Contact Info) Description 10/19/2023 Omnikles Message Enc [facility] Medical Group Family Medicine - [place] [address] [facility] [address] [place] [phone] Mary Wang, ASSISTANT PROJECT ENGINEER [address] [place] [address] Medication side effects Social History Tobacco Use Types Packs/Day Years [...] Date Recorded Patient Health Questionnaire-2 Score 0 08/19/2023 Comments No Sex and Gender Information Value [...] Time PHQ-9 Depression Total Score: 0 01/16/20 9:56 AM CDT documented as of this encounter Care Teams Fountain Waitress/Waiter Relationship Specialty Start Date End Date Mary Wang NP [address] [place] [address] PCP - General NURSE PRACTITIONER 01/08/21 documented as of this encounter
--- OUTSIDE RECORDS SUMMARY | 2024-12-30 08:09 | XMS_ITS | Clinical Summary ---
Author Organization [facility] Address [facility] [place] [address] Care Team Providers Care Vice President Network Development Name Role Phone Mary Wang PANTRY ATTENDANT Primary Care Provider [phone] Allergies Active Allergy Reactions Criticality Noted Date Comments Peanut-Containing Drug Products Anaphylaxis High 10/2012 Sulfa Antibiotics Hives 11/28/2008 Medications multi vitamin/minerals tablet Take 1 tablet by mouth daily. Active aspirin EC (ECOTRIN) 81 MG tablet Take 1 tablet (81 mg total) by mouth daily. Active risedronate (ACTONEL) 150 MG tablet Take 1 tablet (150 mg total) by mouth every 28 days. 4 Active omeprazole (PRILOSEC) 20 MG capsuleIndicatio ns:Gastroesophag eal reflux disease, unspecified whether esophagitis present Take 1 capsule (20 mg total) by mouth daily. 90 capsule 1 4 Active lisdexamfetamine (VYVANSE) 30 MG capsule Take 1 capsule (30 mg total) by mouth every morning. 5 Active escitalopram (LEXAPRO) 10 MG tablet daily. Active escitalopram (LEXAPRO) 10 MG tabletIndication s:Anxiety Take 1 tablet (10 mg total) by mouth daily. 90 tablet 1 5 12/03/19 25 Discontinu ed(Dose adjustment ) Active Problems Problem Noted Date Diagnosed Date Obesity (BMI 30-39.9) 09/02/2024 Assessment & Plan (09/02/2024 8:46 AM CDT): Encourage diet and lifestyle changes to assist with weight loss. Thrombocytosis 06/19/2023 Overview (09/02/2024): Chronic condition. Following with hematology Dr. Simms annually. He has an appointment coming up. No underlying cause has been found yet. Just monitoring for now. Assessment & Plan (09/02/2024 8:47 AM CDT): Chronic condition that is stable. Continue to follow with Dr. Simms annually Right thyroid nodule 06/19/2023 Overview (09/02/2024): 1.5 CM TI RADS 4 right thyroid nodule noted on US from 08/20/23. Also noted 11x 7.4mm anechoic lesion within the left ala of the thyroid cartilage. Differential would include purulent chondritis, hematoma related to trauma or potentially chondral neoplasm either benign or malignant. Recommend ENT consultation. Following with ENT yearly. Has an appointment coming up. Biopsy has not been needed. Assessment & Plan (09/02/2024 8:46 AM CDT): Continue to follow with ENT as directed. TSH will be checked today Attention deficit hyperactiv ity disorder (ADHD), unspecified ADHD type 04/09/2023 Overview (09/02/2024): Chronic condition. Following with psychiatry. Taking Vyvanse 30 mg daily. Assessment & Plan (09/02/2024 8:45 AM CDT): Chronic condition. Controlled. Continue to follow with psychiatry every 3 months as directed. Gastroesophageal reflux dise ase, unspecified whether esophagitis present 08/09/2021 Overview (09/02/2024): Chronic condition. Controlled with omeprazole 20 mg daily. Assessment & Plan (09/02/2024 8:45 AM CDT): Chronic condition. Controlled. GERD education discussed. Avoid eating 2- 3 hours prior to bedtime. Sleep with HOB up to prevent heartburn. Avoid foods/drinks that trigger reflex like spicy/acidic foods, soda, coffee. Encourage weight loss as well. Anxiety 05/25/2019 Overview (09/02/2024): Chronic condition. He is doing well with the citalopram. Has actually only been taking 5 mg. She has been cutting her 10 mg tablets in half. She reports she felt like she had less emotion at the higher dose. She is doing currently well with 5 mg at this time. Denies any SI/HI. She is following with psychiatry as well Assessment & Plan (09/02/2024 8:53 AM CDT): Chronic condition. Doing well on escitalopram 5 mg daily. At her next refill she is requesting a 5 mg tablet. New does updated on med list. Melanoma in situ of shoulder ([facility]) 1 Resolved Problems Problem Noted Date Diagnosed Date Resolved Date Overweight (BMI 25.0-29.9) 09/02/2022 0 09/02/2024 Hypercholesteremia 09/02/2022 Chronic pain of left knee 08/09/2021 Spider bite wound, accidenta l or unintentional, initial encounter 03/19/2021 022 Encounters Date Type Department Care Team Description 12/02/2024 9:20 AM CDT Office Visit [facility] [address] [facility] [place] [address] Mary Wang NP Hypertension (Patient presents c/o elevated blood pressure) 12/02/2024 Travel from Last 3 Months Immunizations Immunization Administration Dates Next Due Influenza (Generic) 01/28/2013 Influenza Adult (Generic) 02/02/2020 Tdap (Adacel) 03/12/2021 Family History Medical History Relation Comments COPD Mother Cancer Mother Bi-lateral Kidne y cancer Diabetes Mother Hypertension Mother Kidney Disease Mother bilat kidney cancer Mother Colon Cancer Other Relation Status Comments Father Other Mother Alive Other Social History Tobacco Use Types Packs/Day Years Used Date Smoking Tobacco: Never Passive Smoke Exposure: Past Smokeless Tobacco: Never Tobacco Cessation:Counseling Given: No Alcohol Use Standard Drinks/Week Comments Never 0 (1 standard drink = 0.6 oz pur e alcohol) AUDIT-C Answer Date Recorded Frequency of Alcohol Consumption Never 11/11/2018 Average Number of Drinks Not on file 019 Frequency of Binge Drinking Not on file 10/26 PHQ-2 Answer Date Recorded Patient Health Questionnaire-2 Score 0 09/02/2024 Comments No Sex and Gender Information Value Date Recorded Sex Assigned at Female 09/02/2024 8:23 AM CDT Legal Sex Female 10:27 AM CDT Gender Identity Female 09/02/2024 8:23 AM CDT Sexual Orientation Not on file Last Filed Vital Signs Vital Sign Reading Time Taken Comments Blood Pressure 104/70 12/02/2024 9:40 AM CDT Pulse 92 12/02/2024 9:30 AM CDT Temperature 36.7 C (98 F) 12/02/2024 9:30 AM CDT Respiratory Rate 14 12/02/2024 9:30 AM CDT Oxygen Saturation 98% 12/02/2024 9:30 AM CDT Inhaled Oxygen Concentration - - Weight 74.8 kg (165 lb) 12/02/2024 9:30 AM CDT Height 157.5 cm (5' 2) 12/02/2024 9:30 AM CDT Body Mass Index 30.18 12/02/2024 9:30 AM CDT Plan of Treatment Health Maintenance Due Date Last Done Comments Hepatitis B Vaccines (1 of 3 - 19+ 3-dose series) 1989 Pneumococcal Vaccine: 50+ Years (1 of 1 - PCV) 2020 Zoster Vaccines (1 of 2) 2020 COVID-19 Vaccine (2 - 2023- season) 2023 07/04/2020 Mammogram Screening 12/11/2024 12/12/2023, 11/19/2022, 09/17/2021 Annual Physical 09/02/2025 09/02/2024, 03/28, 01/15/2021, Additional history exists Colorectal Cancer Screening FIT-DNA (3 Years) 11/02/2026 11/03/2023, 11/03/2023 DTaP, Tdap and Td Vaccines (2 - Td or Tdap) 03/12/2031 03/12/2021 Hepatitis C Completed 08/23/2021 PHQ-2 (Physician [place]) Completed 09/02/2024 Meningococcal B Vaccine Aged Out No l onger eligible based on patient's age to complete this topic Meningococcal Vaccine Aged Out No guido joe eligible based on patient's age to complete this topic RSV Immunizations Under 20 Months Aged Out No longer eligible based on patient's age to complete this topic Procedures Procedure Name Priority Date/Time Associated Diagnosis Comments MAMMOGRAM GENERIC (SCAN ORDER) 12/12/2023 COLOGUARD (EXACT SCIENCE) Routine 11/03/2023 10:00 AM CDT Screen for colon cancer HEPATITIS C ANTIBODY W/RFX TO HCV RNA Routine 08/23/2021 11:14 AM CDT from Last 3 Months or Most Recently Relevant to Health Maintenance Results * MAMMOGRAM GENERIC (SCAN ORDER) (12/12/2023) Anatomical Region Laterality Modality Other 12/12/2023 [facility] Scanned SCANNING Final Resu lt * COLOGUARD (EXACT SCIENCE) (11/03/2023 10:00 AM CDT) COLOGUARD RESULT Negative Negative [facility] (CLIA #:[id number]) Comment: NEGATIVE TEST RESULT. A negative Cologuard result indicates a low likelihood that a colorectal cancer (CRC) or advanced adenoma (adenomatous polyps with more advanced pre-malignant features) is present. The chance that a person with a negative Cologuard test has a colorectal cancer is less than 1 in 1500 (negative predictive value >99.9%) or has an advanced adenoma is less than 5.3% (negative predictive value 94.7%). These data are based on a prospective cross-sectional study of 10,000 individuals at average risk for colorectal cancer who were screened with both Cologuard and colonoscopy. (Ismael Bonilla al, N Engl J Med 2014;370(14):4065-3657) The normal value (reference range) for this assay is negative. COLOGUARD RE-SCREENING RECOMMENDATION: Periodic colorectal cancer screening is an important part of preventive healthcare for asymptomatic individuals at average risk for colorectal cancer. Following a negative Cologuard result, the [place] [employer] and U.S. Multi-Society Task Force screening guidelines recommend a Cologuard re-screening interval of 3 years. References: [place] [employer] Guideline for Colorectal Cancer Screening: https://www.cancer.org/cancer/gtnic-jtxffy-mqpkrl/fzpfdjbiy-hktztecpg-erhheel/ac s-rec ommendations.html.; Daniel DK, Walter PADILLA, Elliott DiazK, Colorectal Cancer Screening: Recommendations for Physicians and Patients from the U.S. Multi-Society Task Force on Colorectal Cancer Screening , Am J Gastroenterology 2017; 112:6255-2121. TEST DESCRIPTION: Composite algorithmic analysis of stool DNA-biomarkers with hemoglobin immunoassay. Quantitative values of individual biomarkers are not reportable and are not associated with individual biomarker result reference ranges. Cologuard is intended for colorectal cancer screening of adults of either sex, 45 years or older, who are at average-risk for colorectal cancer (CRC). Cologuard has been approved for use by the U.S. FDA. The performance of Cologuard was established in a cross sectional study of average-risk adults aged 50-84. Cologuard performance in patients ages 45 to 49 years was estimated by sub-group analysis of near-age groups. Colonoscopies performed for a positive result may find as the most clinically significant lesion: colorectal cancer [4.0%], advanced adenoma (including sessile serrated polyps greater than or equal to 1cm diameter) [20%] or non- advanced adenoma [31%]; or no colorectal neoplasia [45%]. These estimates are derived from a prospective cross-sectional screening study of 10,000 individuals at average risk for colorectal cancer who were screened with both Cologuard and colonoscopy. (Ismael Ohara et al, N Engl J Med 2014;370(14):9254-8841.) Cologuard may produce a false negative or false positive result (no colorectal cancer or precancerous polyp present at colonoscopy follow up). A negative Cologuard test result does not guarantee the absence of CRC or advanced adenoma (pre-cancer). The current Cologuard screening interval is every 3 years. ([place] [employer] and U.S. Multi-Society Task Force). Cologuard performance data in a 10,000 patient pivotal study using colonoscopy as the reference method can be accessed at the following location: www.[employer].beRecruited/results. Additional description of the Cologuard test process, warnings and precautions can be found at www.cologuard.com. STOOL STOOL SPECIMEN / Unknown 11/03/2023 10:00 AM CDT 11/04/2023 9:53 AM CDT Mary Wang PANTRY ATTENDANT BODY FLUIDS AND STOOLS OR DERABLES Final Result Performing Organization Address [facility] [[email or web address]] Co de Phone Number [facility] ([address]) [address] [place] [address], [employer] (CLIA #:[id number]) [address] [place] [address] * HEPATITIS C ANTIBODY W/RFX TO HCV RNA (08/23/2021 11:14 AM CDT) HEPATITIS C AB NON-REACTI VE NON-REACT MARIE [facility] SIGNAL TO CUTOFF 0.01 <[address] [facility] Comment: HCV antibody was non-reactive. There is no laboratory evidence of HCV infection. In most cases, no further action is required. However, if recent HCV exposure is suspected, a test for HCV RNA (test code 81090) is suggested. For additional information please refer to http://education.[employer].beRec[employer]ited/faq/YIE70g0 (This link is being provided for informational/ educational purposes only.) 08/23/2021 11:1 4 AM CDT 08/23/2021 11:15 AM CDT us Mary Wang NP LABORATORY Final Res ult [facility] [address] [id number] from Last 3 Months or Most Recently Relevant to Health Maintenance Insurance [facility] Care Teams Vice President Network Development Relationship Specialty Start Date End Date Mary Wang NP [address] [place] [address] PCP - General NURSE PRACTITIONER 01/08/21
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
== END 2024-12-30 08:05 | disposition home or self-care (01) ==
LOC: ANHFOHIMG 08:06
PROVIDERS: PCP Nurse Practitioner; Visit Provider Obstetrics & Gynecology
DX: Z12.31 Encounter for screening mammogram for malignant neoplasm of breast (principal)
CPT/HCPCS: 77063; 77067

== ENCOUNTER 2025-01-19 09:45 | Outpatient (CLI) | payer OTHER, SELFPAY ==
--- OUTSIDE RECORDS SUMMARY | 2024-12-13 05:00 | XMS_ITS ---
Author Organization [facility] [email or web address] [facility] Address [facility] [facility] [address] [place] [address] Care Team Providers Care Training Director Name Role Phone Mary Wang APN Primary Care Provider Lexis Christopher Unavailable [phone] Cynthia Mathew Unavailable [phone] REASON FOR VISIT 2 week follow up Social History Sex Assigned At : Social History Observation Description Sex Assigned At Female Encounters Encounter Location Date Provider Diagnosis [facility] [employer] [place] [address] [facility] [address] [place] [address] 12/13/2024 Cynthia Mathew Plan Of Treatment Next Appt Details Provider Name:Cynthia Mathew , 01/24/2025 10:00:00 AM, [facility], [facility] [address], [place], [address], Progress Notes * DESMONDNEDRALANAB: [birth year] (54 yo F)Acc No.[id number]:12/13/2024 Patient: ROMEO BENDER Provider: Antione MATHEW LCSW :1970 A ge:54 Y S ex:Female Date:12/13/2024 [facility] Pcp:Mary Wang APN Data: * Chief Complaints: * 2 week follow up * Electronic signature of Vandana Mathew LCSW on 01/19/2025 at 10:35 AM CDT Sign off status: Pending Signatures: No Ad Hoc Signature Added * Provider: Antione MATHEW LCSW Date: 0 12/13/2024 Generated for Laz angel/Rosa Isela/Tay on: 0 01/19/2025 10:35 AM CDT
--- OUTSIDE RECORDS SUMMARY | 2024-12-28 05:00 | XMS_ITS ---
Author Organization [facility] Patient Education [employer] [facility] Address [facility] [facility] [address] [place] [address] Care Team Providers Care Heater Mechanic Name Role Phone Mary Wang APN Primary Care Provider Lexis Christopher Unavailable [phone] Cynthia Mathew Unavailable [phone] REASON FOR VISIT 2 week follow up Social History Sex Assigned At : Social History Observation Description Sex Assigned At Female Encounters Encounter Location Date Provider Diagnosis [facility] [employer] [address] [facility] [address] [place] [address] 12/28/2024 Cynthia Mathew Plan Of Treatment Next Appt Details Provider Name:Cynthia Mathew , 01/24/2025 10:00:00 AM, [facility], [facility] [address], [place], [address], Progress Notes * DESMONDNEDRALANAB: [birth year] (54 yo F)Acc No.[id number]:12/28/2024 Patient: ROMEO BENDER Provider: Antione MATHEW LCSW :1970 A ge:54 Y S ex:Female Date:12/28/2024 [facility] Pcp:Mary Wang APN Data: * Chief Complaints: * 2 week follow up * Electronic signature of Vandana Mathew LCSW on 01/19/2025 at 10:35 AM CDT Sign off status: Pending Signatures: No Ad Hoc Signature Added * Provider: Antione MATHEW LCSW Date: 0 12/28/2024 Generated for Laz Hardy on: 01/19/2025 10:35 AM CDT
--- OUTSIDE RECORDS SUMMARY | 2025-01-18 11:30 | XMS_ITS ---
Author Organization [facility] [employer] [facility] Address [address] [place] [address] [address] Care Team Providers Care Ladies' Hat Trimmer Name Role Phone Mary Wang APN Primary Care Provider Lexis Christopher Unavailable [phone] REASON FOR VISIT 1 month f/u Social History Sex Assigned At : Social History Observation Description Sex Assigned At Female Encounters Encounter Location Date Provider Diagnosis [facility] [employer] [place] [id number] PENDING SALE TO [facility] [address] [address] 01/18/2025 Lexis Conti Plan Of Treatment Next Appt Details Provider Name:Cynthiafernando Mathew , 01/24/2025 10:00:00 AM, [facility], [facility] [[email or web address] [address], [place], [address], Progress Notes * DESMOND ELVINB: [birth year] (54 yo F)Acc No.[id number]:01/18/2025 Patient: NEDRA BENDERANETTA Provider: ANG RODRIGUEZ :1970 A ge:54 Y S ex:Female Date:01/18/2025 Address:[address] [place], [place] [id number] Pcp:Mary Wang APN Subjective: * Chief Complaints: * 1 month f/u Billing Information: * Procedure Codes: * Electronic signature of ANG Bronson on 01/19/2025 at 10:35 AM CDT Sign off status: Pending * Provider: ANG RODRIGUEZ Date: 0 01/18/2025 Generated for Laz angel/Rosa Isela/Tay on: 0 01/19/2025 10:35 AM CDT
--- NOTE | ~2025-01-19 | DEXA_ITS ---
Bone Density Report Name: ROMEO LIM Age: 54 Sex: Female Ethnicity: White Date of : 1970 Indication: postmenopausal; screening for osteoporosis; hysterectomy; Referring Provider: ALEX GREENE Study: Bone densitometry was performed. Exam Date: January 19, 2025 Accession number: [id number] Bone Density: Region BMD T-score Z-score Classification AP Spine(L1-L4) 0.735 -2.8 -1.8 Osteoporosis Femoral Neck (Left) 0.640 -1.9 -0.8 Osteopenia Total Hip (Left) 0.779 -1.3 -0.7 Osteopenia Femoral Neck (Right) 0.671 -1.6 -0.6 Osteopenia Total Hip (Right) 0.810 -1.1 -0.4 Osteopenia Total Hip Mean 0.795 -1.2 -0.6 Osteopenia World Health Organization criteria for BMD impression classify patients as: Normal (T-score at or above -1.0), Osteopenia (T-score between -1.0 and -2.5), or Osteoporosis (T-score at or below -2.5). 10-year Fracture Risk: FRAX not reported because: Some T-score for Spine Total or Hip Total or Femoral Neck at or below -2.5 Treated for osteoporosis Clinical Information Provided by Patient: Is being treated for osteoporosis Has used the following medications: Fosamax (i.e. alendronate) Has the following medical conditions: Hysterectomy Patient maximum height was 62.5 Menopause Age: 42 Drinks caffeinated beverages Onset of menses at age 11 Number of children 4 Impression: The patient has osteoporosis, based on the Total Spine T-score. Discussion: It is important to ask patients whether they are taking their medications and to encourage continued and appropriate compliance with their osteoporosis therapies to reduce fracture risk. It is also important to review their risk factors and encourage appropriate calcium and vitamin D intakes, exercise, fall prevention and other lifestyle measures. Follow-Up: Consider a repeat BMD and Vertebral Fracture Assessment (VFA) exam in 2 years or sooner if medically necessary, to reassess this patient's status. Reported by: SARAH on 01/19/2025 10:35:00 AM. Reviewed, dictated and finalized at location A.
--- OUTSIDE RECORDS SUMMARY | 2025-01-19 10:35 | XMS_ITS | Clinical Summary ---
Author Organization [facility] [employer] Address [address] [place] [address] Care Team Providers Care Control Panel Assembler Name Role Phone Beth Cole PA-C Primary Care Provider Source Comments [facility],non-owned Affiliates and Associated Physician Practices is amultiple site organization consisting of ambulatory clinics and hospital sitesin [place], [place], [place] and [place]. This disclosure is being madepursuant to the Care Everywhere program and may not contain all information available regarding this patient. Last updated 18.[facility] Allergies Active Allergy Reactions Criticality Noted Date [...] on file Legal Sex Female 7:38 AM MOONER Gender Identity Not on file Sexual Orientation Not on file Last Filed Vital Signs Vital Sign Reading Time Taken Comments Blood Pressure 124/80 03/27/2015 4:43 PM MOONER Pulse 79 03/27/2015 4:43 PM MOONER Temperature - - Respiratory Rate - - Oxygen Saturation - - Inhaled Oxygen Concentration - - Weight 72.6 kg (160 lb) 03/27/2015 4:43 PM MOONER Height 157.5 cm (5' 2) 03/27/2015 4:43 PM MOONER Body Mass Index 29.26 03/27/2015 4:43 PM MOONER Plan of Treatment Health Maintenance Due Date [...] 2020 ZOSTER VACCINE (1 of 2) 2020 DEPRESSION SCREENING 04/28/2024 COVID-19 VACCINE (1 - 2023-2 5 season) 2024 INFLUENZA VACCINE (#1) 2024 01/28/2013 HIB VACCINE [...] Comments LIPID PROFILE Routine 03/29/2015 12:41 PM MOONER Lipid screening from Last 3 Months or Most Recently Relevant to Health Maintenance Results * (ABNORMAL) LIPID PROFILE (03/29/2015 12:41 PM MOONER) Cholesterol 232(H) <200 mg/dL [facility] ACCOUNT BILL Triglycerides 104 <150 mg/dL [facility] ACCOUNT BILL HDL Cholesterol 77 >40 mg/dL [facility] ACCOUNT BILL VLDL Calculated 21 <=30 mg/dL [facility] ACCOUNT BILL LDL Calculated 134(H) <130 mg/dL [facility] ACCOUNT BILL Blood specimen (specimen) BLOOD SPECIMEN / Unknown 03/29/2015 12:41 PM MOONER 03/29/2015 6:11 PM MOONER Narrative Resulting Agency Comment [facility] [address] [id number] Kaylen Clay APRN-PURCHASE PRICE ANALYST LAB - CHEMISTRY ORD ERABLES Final Result [facility] ACCOUNT BILL [address] [place] [address] from Last 3 Months or Most Recently Relevant to Health Maintenance Insurance [employer] * Guarantor: BRENDA BARNES Account Type Relation to Patient Date of Phone Billing Address Personal/Family [address] [address] SELF PAY NO INSURANCE Member Subscriber Plan / Payer (Ef fective for All Dates) Name:Brenda Barnes Member ID:Not on file Relation to Subscriber:Not on file Name:BRENDA BARNES Subscriber ID:Not on file Address: [address] [address] Payer ID:Not on file Group ID:Not on file Type:Self Pay Address: [place], [place] * Guarantor: BRENDA BARNES Account Type Relation to Patient Date of Phone Billing Address Personal/Family [address] [address] [employer] SELF PAY NO INSURANCE Member Subscriber Plan / Payer (Ef fective for All Dates) Name:Brenda Barnes Member ID:Not on file Relation to Subscriber:Not on file Name:BRENDA BARNES Subscriber ID:Not on file Address: [address] [address] Payer ID:Not on file Group ID:Not on file Type:Self Pay Address: [place], [place] * Guarantor: BRENDA BARNES Account Type Relation to Patient Date of Phone Billing Address Personal/Family [address] [address] SELF PAY NO INSURANCE Member Subscriber Plan / Payer (Ef fective for All Dates) Name:Brenda Barnes Member ID:Not on file Relation to Subscriber:Not on file Name:BRENDA BARNES Subscriber ID:Not on file Address: [address] [address] Payer ID:Not on file Group ID:Not on file Type:Self Pay Address: [place], [place] Care Teams Control Panel Assembler Relationship Specialty Start Date End Date Beth Cole PA-C [address] [place] [phone] PCP - General 07/04/20
--- OUTSIDE RECORDS SUMMARY | 2025-01-19 10:36 | XMS_ITS | Clinical Summary ---
Author Organization [facility] Address [address] [place] [address] Care Team Providers Care Loan Counselor Name Role Phone Unavailable Primary Care Provider [...] Abstract 10/19/2024 10:15 AM CDT Office Visit [facility] On[facility] and Hematology - [place] [address] [place] [address] Bharat Simms MD Reactive thrombocytosis (Primary Dx) from Last 3 Months Family History Medical [...] 157.5 cm (5' 2) 05/07/2023 2:32 PM OPAL POLISHER Body Mass Index 30.62 05/07/2023 2:32 PM OPAL POLISHER Plan of Treatment Upcoming Encounters Date Type Department Care Team (Late st Contact Info) Description 05/04/2025 10:00 AM OPAL POLISHER Office Visit [facility] [place] [address] [place] [address] [facility] [address] [place] [address] Bharat Simms MD [address] [place] [address] Health Maintenance Due Date Last [...] (2 - Td or Tdap) 03/12/2031 Insurance [facility] OPEN ACCESS HMO
--- OUTSIDE RECORDS SUMMARY | 2025-01-19 10:36 | XMS_ITS | Patient Health Record ---
Author Organization [facility] [employer] Address [address] [facility] [address] [place] [address] Care Team Providers Care Language Asst Name Role Phone Mary Wang APN Primary Care Provider Lexis Christopher Unavailable [phone] Cynthia Mathew Unavailable [phone] Emma Moffett Unavailable [phone] Allergies Allergen (clinical drug ingredient) Drug/Non Drug Allergy documented on EMR Reaction Allergy Type Onset Date Status Substance with sulfonamide structure and antibacterial mechanism of action (substance) SULFA (SULFONAMIDE ANTIBIOTICS) (uncoded) Unknown Allergy 08/12/2023 Active Results Component Value Reference Range Flag Notes Validity Testing Reviewed date:11/26/2024 07:20:59 PM Interpretation: Performing Lab:, [facility], [address] [place] [address], Director - [id number] Notes/Report: Not Medicated Inconsistent Not Medicated Consistent Not Medicated Consistent Not Medicated Consistent Specific [place] 1.014 1.003 - 1.030 pH 5.9 3.0 - 10.9 Oxidants -25 200 g/mL Creatinine 306.8 20.0 - 300.0 A Stimulants Reviewed date:11/26/2024 07:21:03 PM Interpretation: Performing Lab: Notes/Report: Phentermine NEGATIVE 100.0 ng/mL Not Medicate d Consistent Methylphenidate NEGATIVE 50.0 ng/mL Not Medic ated Consistent Methamphetamine NEGATIVE 100.0 ng/mL Not Medi cated Consistent Amphetamine >4000 100.0 POSITIVE Medicated Consistent Amphetamine Reviewed date:11/26/2024 07:20:57 PM Interpretation: Performing Lab: Notes/Report: An exception occurred while processing this report and so it has incomplete data. Please contact [employer] for assistance. PDF Report CE_OUT_RAW_CO MMON_SRC_ORU Amphetamine Reviewed date:10/01/2024 01:30:25 PM Interpretation: Performing Lab: Notes/Report: An exception occurred while processing this report and so it has incomplete data. Please contact [employer] for assistance. PDF Report CE_OUT_RAW_CO MMON_SRC_ORU Stimulants Reviewed date:10/01/2024 01:30:25 PM Interpretation: Performing Lab: Notes/Report: Phentermine NEGATIVE 100.0 ng/mL Not Medicate d Consistent Methylphenidate NEGATIVE 50.0 ng/mL Not Medic ated Consistent Methamphetamine NEGATIVE 100.0 ng/mL Not Medi cated Consistent Amphetamine 2659.3 100.0 ng/mL POSITIVE Medicated Consistent Validity Testing Reviewed date:10/01/2024 01:30:25 PM Interpretation: Performing Lab:[address] [place] [address], [address] [place] [address], Director - [id number] Notes/Report: Not Medicated Consistent Not Medicated Consistent Not Medicated Consistent Not Medicated Consistent Specific [place] 1.013 1.003 - 1.030 pH 5.3 3.0 - 10.9 Oxidants -39 200 g/mL Creatinine 113.1 20.0 - 300.0 mg/dL UDT Reviewed date:11/19/2024 02:24:20 PM Interpretation: Performing Lab: Notes/Report: THC n 0 - 50 ng/ml Cocaine n 0 - 300 ng/ml Amphetamine p 0 - 1000 ng/ml Buprenorphine (BUP) n 0 - 10 ng/ml Secobarbital (Bar) n 0 - 300 ng/ml Oxazepam (BZO) n 0 - 300 ng/ml 2-gfujirfpfm-3,5-oqxxkdlo-5, 3-diph enylpyrrolidine (EDDP) n 0 - 300 ng/ml Methamphetamine (MET) n 0 - 1000 ng/ml Methylenedioxymethamphetamin e (MDMA) n 0 - 500 ng/ml Morphine (MOP 300/[id number]) n 0 - 300 ng/ml Methadone (MTD) n 0 - 300 ng/ml Phencyclidine (PCP) n 0 - 25 ng/ml Nortriptyline (TCA) n 0 - 1000 ng/ml Oxycodone n 0 - 300 ng/ml x n 0 - 300 ng/ml UDT Reviewed date:02/27/2024 11:11:44 AM Interpretation: Performing Lab: Notes/Report: THC N 0 - 50 ng/ml Cocaine N 0 - 300 ng/ml Amphetamine P 0 - 1000 ng/ml Buprenorphine (BUP) N 0 - 10 ng/ml Secobarbital (Bar) N 0 - 300 ng/ml Oxazepam (BZO) N 0 - 300 ng/ml 4-frzpvpthgf-9,9-hpqlzzan-1, 3-diph enylpyrrolidine (EDDP) N 0 - 300 ng/ml Methamphetamine (MET) N 0 - 1000 ng/ml Methylenedioxymethamphetamin e (MDMA) N 0 - 500 ng/ml Morphine (MOP 300/[id number]) N 0 - 300 ng/ml Methadone (MTD) [...] Oxazepam (BZO) NEG 0 - 300 ng/ml 7-sqxjqciilm-9,4-gmyuskoj-0, 3-diph enylpyrrolidine (EDDP) NEG 0 - 300 ng/ml Methamphetamine (MET) NEG 0 - 1000 ng/ml Methylenedioxymethamphetamin e (MDMA) NEG 0 - 500 ng/ml Morphine (MOP 300/[id number]) NEG 0 - 300 ng/ml Methadone (MTD) [...] Oxazepam (BZO) n 0 - 300 ng/ml 8-zupilimqgg-6,2-mzskcpln-5, 3-diph enylpyrrolidine (EDDP) n 0 - 300 ng/ml Methamphetamine (MET) n 0 - 1000 ng/ml Methylenedioxymethamphetamin e (MDMA) n 0 - 500 ng/ml Morphine (MOP 300/[id number]) n 0 - 300 ng/ml Methadone (MTD) n 0 - 300 ng/ml Phencyclidine (PCP) n 0 - 25 ng/ml Nortriptyline (TCA) n 0 - 1000 ng/ml Oxycodone n 0 - 300 ng/ml x n 0 - 300 ng/ml Reason For Referral No Information Medications Medication SIG (Take, Route, Frequency, Duration) Notes Start Date End Date Status Lisdexamfetamine Dimesylate 30 MG Capsule 1 capsule in the morning Oral Once a day; Duration: 30 days 12/28/2024 Active Escitalopram Oxalate 10 MG Tablet 1.5 tablet Oral Once a day; Duration: 30 days Active Risedronate Sodium 150 MG Tablet Oral 08/12/2023 Unknown Amphetamine-Dextroamphetamin e 10 MG Tablet 1 tablet Orally daily; Duration: 30 days As needed in the afternoon 12/28/2024 Active Omeprazole 20 MG Capsule Delayed Release Oral 08/12/2023 Unknown Social History Tobacco Use: Social History Observation Description Date Details (start date - stop date) Never Smoker NA - NA Sex Assigned At : Social History Observation Description Sex Assigned At Female Social History Miscellaneous: Social Info Question Answer Notes Advance Care Planning Are you your own decision-maker Yes Do you have Power of Appraisal Technician for Health or [facility]? No Safety issues: Are there any firearms [...] Status Risk Notes Problem Recurrent major depression (73630906) Major depressive disorder, recurrent, unspecified (F33.9) Active confirmed Problem Generalized anxiety disorder (87650473) Generalized anxiety disorder (F41.1) Active confirmed Problem Attention deficit hyperactivity disorder, predominantly inattentive type (12597730) Attention-deficit hyperactivity disorder, predominantly inattentive type (F90.0) Active confirmed Problem Mild recurrent major depression (19820350) Mild recurrent major depression (F33.0) Active confirmed Vital Signs Heart Rate 116 /min 11/19/2024 Height-cm 157.48 cm 11/19/2024 Blood pressure diastolic 94 mm Hg 11/19/2024 Weight-kg 74.39 kg 11/19/2024 Height 62.00 in 11/19/2024 Blood pressure systolic 135 mm Hg 11/19/2024 Weight 164 lbs 11/19/2024 BMI 29.99 kg/m2 11/19/2024 Encounters Encounter Location Date Provider Diagnosis [employer] [address] [facility] [address] [place] [address] 02/27/2024 Lexis Gallito Attention-deficit hyperactivity disorder, predominantly inattentive type F90.0 ; Major depressive disorder, recurrent, unspecified F33.9 and Generalized anxiety disorder F41.1 [facility] [address] [facility] [address] [place] [address] 05/31/2024 Lexis Gallito Attention-deficit hyperactivity disorder, predominantly inattentive type F90.0 ; Major depressive disorder, recurrent, unspecified F33.9 and Generalized anxiety disorder F41.1 [facility] [address] [place] [address] 08/09/2024 Cynthia Quincy Encounter for screening for depression Z13.31 ; Attention-deficit hyperactivity disorder, predominantly inattentive type F90.0 ; Major depressive disorder, recurrent, unspecified F33.9 and Generalized anxiety disorder F41.1 [facility] [address] [place] [address] 08/18/2024 Cynthia Quincy Encounter for screening for depression Z13.31 ; Major depressive disorder, recurrent, unspecified F33.9 ; Generalized anxiety disorder F41.1 and Attention-deficit hyperactivity disorder, predominantly inattentive type F90.0 [place] [address] [facility] [address] [place] [address] 08/25/2024 Cynthia Quincy Encounter for screening for depression Z13.31 ; Major depressive disorder, recurrent, unspecified F33.9 ; Generalized anxiety disorder F41.1 and Attention-deficit hyperactivity disorder, predominantly inattentive type F90.[address] [facility] [address] [place] [address] 09/03/2024 Cynthia Quincy Major depressive disorder, recurrent, unspecified F33.9 ; Generalized anxiety disorder F41.1 ; Attention-deficit hyperactivity disorder, predominantly inattentive type F90.0 and Encounter for screening for depression Z13.31 [place] [address] [address] 09/07/2024 Cynthia Quincy Attention-deficit hyperactivity disorder, predominantly inattentive type F90.0 ; Major depressive disorder, recurrent, unspecified F33.9 ; Generalized anxiety disorder F41.1 and Encounter for screening for depression Z13.31 [place] [address] [facility] [address] [address] 09/27/2024 Lexis Conti Attention-deficit hyperactivity disorder, predominantly inattentive type F90.0 ; Major depressive disorder, recurrent, unspecified F33.9 ; Generalized anxiety disorder F41.1 and Negative depression screening Z13.31 [place] [address] [facility] [address] [address] 10/05/2024 Cynthiafernando Mathew Attention-deficit hyperactivity disorder, predominantly inattentive type F90.0 ; Major depressive disorder, recurrent, unspecified F33.9 ; Generalized anxiety disorder F41.1 and Encounter for screening for depression Z13.31 [place] [address] [facility] [address] [facility] [address] [place] [address] 10/11/2024 Cynthia Quincy Attention-deficit hyperactivity disorder, predominantly inattentive type F90.0 ; Major depressive disorder, recurrent, unspecified F33.9 ; Generalized anxiety disorder F41.1 and Encounter for screening for depression Z13.31 [facility] [address] [place] [address] 10/19/2024 Cynthia Quincy Attention-deficit hyperactivity disorder, predominantly inattentive type F90.0 ; Major depressive disorder, recurrent, unspecified F33.9 ; Generalized anxiety disorder F41.1 and Encounter for screening for depression Z13.31 [facility] [address] [place] [address] 10/27/2024 Cynthia Quincy Attention-deficit hyperactivity disorder, predominantly inattentive type F90.0 ; Major depressive disorder, recurrent, unspecified F33.9 ; Generalized anxiety disorder F41.1 and Encounter for screening for depression Z13.31 [facility] [address] [place] [address] 11/19/2024 Lexis Kurilla Attention-deficit hyperactivity disorder, predominantly inattentive type F90.0 ; Major depressive disorder, recurrent, unspecified F33.9 and Generalized anxiety disorder F41.1 [place] [address] [place] [address] 11/29/2024 Cynthia Quincy Attention-deficit hyperactivity disorder, predominantly inattentive type F90.0 ; Generalized anxiety disorder F41.1 ; Mild recurrent major depression F33.0 and Encounter for screening for depression Z13.31 [place] [address] [facility] [address] [place] [address] 01/10/2025 Cynthia Quincy Attention-deficit hyperactivity disorder, predominantly inattentive type F90.0 ; Mild recurrent major depression F33.0 and Generalized anxiety disorder F41.1 [place] [address] [facility] [address] [place] [address] 06/23/2024 Cynthia Quincy [facility] [address] [place] [address] 09/23/2024 Lexis Kurilla Attention-deficit hyperactivity disorder, predominantly inattentive type F90.0 [place] [address] [facility] [address] [place] [address] 01/21/2024 Lexis Kurilla Attention-deficit hyperactivity disorder, predominantly inattentive type F90.0 [place] [address] [place] [address] 02/20/2024 Lexis Kurilla Attention-deficit hyperactivity disorder, predominantly inattentive type F90.0 [facility] [address] [place] [address] 03/24/2024 Lexis Kurilla Attention-deficit hyperactivity disorder, predominantly inattentive type F90.0 [facility] [address] [place] [address] 04/22/2024 Lexis Kurilla Attention-deficit hyperactivity disorder, predominantly inattentive type F90.0 [facility] [address] [place] [address] 05/24/2024 Lexis Kurilla Attention-deficit hyperactivity disorder, predominantly inattentive type F90.0 [facility] [address] [place] [address] 06/21/2024 Lexis Kurilla [facility] [address] [place] [address] 06/23/2024 Lexis Kurilla [facility] [address] [place] [address] 06/23/2024 Lexis Kurilla Attention-deficit hyperactivity disorder, predominantly inattentive type F90.0 [facility] [address] [place] [address] 07/21/2024 Lexis Kurilla [facility] [address] [place] [address] 07/21/2024 Lexis Kurilla Attention-deficit hyperactivity disorder, predominantly inattentive type F90.0 [facility] [address] [place] [address] 07/21/2024 Lexis Kurilla [facility] [address] [place] [address] 08/19/2024 Lexis Kurilla Attention-deficit hyperactivity disorder, predominantly inattentive type F90.0 [facility] [address] [place] [address] 10/25/2024 Emma Moffett Attention-deficit hyperactivity disorder, predominantly inattentive type F90.0 [facility] [address] [place] [address] 12/25/2024 Lexis Kuredmundo [facility] [address] [place] [address] 12/25/2024 Lexis Conti Attention-deficit hyperactivity disorder, predominantly inattentive type F90.0 and Major depressive disorder, recurrent, unspecified F33.9 [facility] [employer] [facility] [address] [facility] [address] [facility] [address] [place] [address] 12/28/2024 Lexis Conti Assessments Encounter Date Diagnosis [...] had another child). Client [place] [facility]. She reports she does not remember any [...] had another child). Client [place] [facility]. She reports she does not remember any [...] policy, only prescribed to local pharmacy in [place], no early refills on control substance. 10/05/2024 [...] policy, only prescribed to local pharmacy in [place], no early refills on control substance. 11/29/2024 Generalized anxiety disorder (ICD-10 - F41.1) 11/29/2024 Attention-defic it hyperactivity disorder, predominantly inattentive type (ICD-10 - F90.0) 12/25/2024 Attention-defic it hyperactivity disorder, predominantly inattentive type (ICD-10 - F90.0) 01/10/2025 Attention-defic it hyperactivity disorder, predominantly inattentive type (ICD-10 - F90.0) 01/10/2025 Mild recurrent major depression (ICD-10 - F33.0) 11/19/2024 Major depressive disorder, recurrent, unspecified (ICD-10 [...] had another child). Client [place] [facility] She reports she does not remember any [...] had another child). Client [place] [facility]. She reports she does not remember any [...] for screening for depression (ICD-10 - Z13.31) 01/10/2025 Generalized anxiety disorder (ICD-10 - F41.1) 02/27/2024 Other Overall stable, continue current medications [...] had another child). Client grew [place] [facility]. She reports she does not remember any [...] all these relationships. She has seen a fitting room maintenance mechanic but does not plan to act on [...] effects of psychotropic medications. -Crisis prevention hotline [id number]. 10/05/2024 Other Client reports things are pretty [...] left for his most recent job in [place], her mother in law has had a [...] her current situation. 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 She is excited by this prospect. She is still thinking about the posibility of divorce. Therapist actively listened to client and asked questions for clarification. Therapist actively listened to client and asked questions for clarification. The therapist then provided a supportive intervention by helping client maintain her current level of functioning through the showing of acceptance. PHQ=3 minimal RASHIDA=1 minimal Plan Of Treatment Next Appt Details Provider Name:Cynthia Mathew , 01/24/2025 10:00:00 AM, [address], [facility], [place], [address], Insurance Providers Payer Name Payer Address Payer Phone Subscriber Number Group Number Insured Name Patient Relationship to Insured Coverage Start Date Coverage End Date Kenny [address]ARTINEZ [address] [place] [address] [id number] ROMEO LOGAN Self - patient is the [...] Surgical History Surgery Date(Month/Year) Removal of gallbladder (75189) 8 Endometrial ablation (89350) 04/28/2014 Hysterectomy (41295) 04/28/2014
== END 2025-01-19 09:46 | disposition home or self-care (01) ==
LOC: ANHFOHIMG 09:49
PROVIDERS: PCP Nurse Practitioner; Visit Provider Obstetrics & Gynecology
DX: M81.0 Age-related osteoporosis without current pathological fracture (principal); M85.852 Other specified disorders of bone density and structure, left thigh; M85.851 Other specified disorders of bone density and structure, right thigh
CPT/HCPCS: 77080